=== PATIENT | female | born 1990 | race African-American/Black ===

== ENCOUNTER 2019-07-22 12:15 | Emergency (ER) | payer MEDICAID, OTHER ==
[~2019-07-22] VITALS: Ht 165.1 cm; Wt 102.5 kg
--- NOTE | 2019-07-22 12:38 | NUR ---
Patient discharged to home in stable conditon. Written and verbal after care instructions given. Patient verbalizes understanding of instructions.
== END 2019-07-22 12:39 | disposition home or self-care (01) ==
LOC: ER 12:15
DX: O26.891 Other specified pregnancy related conditions, first trimester (principal); H60.391 Other infective otitis externa, right ear; Z3A.00 Weeks of gestation of pregnancy not specified
CPT/HCPCS: A4663

== ENCOUNTER 2019-08-02 17:45 | Emergency (ER) | payer OTHER ==
--- NOTE | 2019-08-02 17:51 | NUR ---
called the pt. pt not in the waiting room or outside.
== END 2019-08-02 17:52 | disposition left against medical advice (07) ==
LOC: ER 17:45
DX: Z53.21 Procedure and treatment not carried out due to patient leaving prior to being seen by health care provider (principal)
CPT/HCPCS: A4663